=== PATIENT | female | born 1970 | race Caucasian/White ===

== ENCOUNTER 2019-11-04 08:41 | Day surgery (SDC) | payer BC, SELFPAY ==
[2019-11-04] VITALS (7 sets, daily range): BP systolic 133–155; BP diastolic 77–109; PULSE 84–104; RESP 14–22; TEMP 36.3–36.6; O2SAT 97–100
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
[2019-11-04] MEDS: MORPHINE SULFATE 4 MG/ML INJ IV PUSH (08:58)
[2019-11-04] MEDS: TETANUS,DIPHTHERIA,AC PERTUSSIS ADULT (0.5 ML) BOOSTRIX IM (09:07)
[2019-11-04] MEDS: HYDROmorphone HCL INJ (*CRX) 1 MG/ML SYR IV PUSH (10:19)
[2019-11-04] MEDS: MORPHINE SULFATE (*CRX) 4 MG/ML INJ IV PUSH (10:41)
--- NOTE | 2019-11-04 11:48 | WPDANESEPPF ---
Anes - Initial Pre Proc Eval Procedure: Operation Date: 11/04/19 17:00 Proposed Procedures p Open Reduction Internal Fixation Right Distal Radius - J Luis Levine MD Date/Time: 11/04/19 11:48 Pre Op Diagnosis: right wrist fracture Patient Data Age: 49 Gender: F Height: 1.83 m Weight: 117.6 kg Last Vital Signs Temp 36.6 C 11/04/19 08:40 Pulse 95 11/04/19 11:17 Resp 14 11/04/19 11:17 BP 137/88 11/04/19 11:17 Pulse Ox 97 11/04/19 11:17 Allergies Allergy/AdvReac Type Severity Reaction Status Date / Time No Known Allergies Allergy Verified 11/04/19 08:51 Home Medications Medication Instructions Recorded Confirmed Type lisinopril-hydrochlorothiazide 20 tablet PO DAILY 11/04/19 11/04/19 History omeprazole magnesium [Prilosec OTC] 20 mg PO DAILY 11/04/19 11/04/19 History Patient hx anesthesia problems: none Family hx anesthesia problems: none [facility] Past Medical History Medical History (Updated 11/04/19 @ 13:32 by Brice Matt DO) GERD (gastroesophageal reflux disease) Hypertension Social History Social History (Updated 11/04/19 @ 08:55 by Brice Matt DO) Smoking packs per day: 0.5 Smoking cigarettes per day: 10.0 Anes - Eval Final PreProcedure Day of Procedure 11/04/19 11:48 Patient weight: obese Heart: regular rate and rhythm Lungs: clear to auscultation and normal air movement Airway: Mallampati scale class II Neurological: alert and oriented Last oral intake: >/= 8 hours ASA classification: III Emergent: yes Anesthetic plan: proceed Anesthesia type and monitoring: general LMA and standard monitoring Informed Consent: The patient's anesthetic plan and its attendant risks and benefits were discussed with the patient/family/POA. Questions were solicited and answers provided to the satisfaction of the patient/family/POA.
--- NOTE | 2019-11-04 12:48 | PC.NURSE ---
spoke to spouse Jorge A at [phone] and gave update on pt status per pt request
[2019-11-04] MEDS: SODIUM CHLORIDE 0.9% IV 1,000 ML 150 ML IV CONT (12:52)
[2019-11-04 14:38] LABS: Basophils Absolute Auto 0.1 K/mm3 (0.0-0.1); Basophils Percent Auto 0.6 % (0.2-1.2); Eosinophils Absolute Auto 0.2 K/mm3 (0-0.3); Eosinophils Percent Auto 1.6 % (0-4.4); Hematocrit 38.5 % (37.0-47.0); Hemoglobin 12.2 g/dL (12.0-15.0); Immature Granulocyte Absolute 0.04 K/mm3 (0.00-0.031); Immature Granulocyte Percent A 0.4 % (0-0.5); Immature Platelet Fraction Pct 4.9 % (0.9-11.2); Lymphocytes Absolute Auto 2.46 K/mm3 (0.9-3.2); Lymphocytes Percent Auto 22.6 % (18.3-44.2); Mean Corpuscular HGB Conc 31.7 g/dl (32-36); Mean Corpuscular Hemoglobin 27.3 pg (26-34); Mean Corpuscular Volume 86.1 fl (80-100); Mean Platelet Volume 11.4 fl (7.4-10.4); Monocytes Absolute Auto 0.8 K/mm3 (0.1-0.6); Monocytes Percent Auto 7.3 % (2.6-8.5); Neutrophils Absolute Auto 7.4 K/mm3 (1.3-6.7); Neutrophils Percent Auto 67.5 % (45.5-73.1); Platelet Count Result 364 k/mm3 (150-375); Red Blood Count 4.47 M/mm3 (4.2-5.4); Red Cell Distribution Width 14.7 % (11.5-14.5); White Blood Count 10.9 K/mm3 (4.5-10.0)
--- NOTE | 2019-11-04 14:49 | ECG_ITS ---
Measurements Intervals [place] Rate: 76 P: 43 WI: 139 QRS: 40 QRSD: 86 T: 42 QT: 383 QTc: 431 Interpretive Statements SINUS RHYTHM NORMAL ECG Electronically Signed On 11-04-2019 15:16:22 CDT by Jarett Segovia D.O.
[2019-11-04 14:50] LABS: Alanine Aminotransferase 21 U/L (4-35); Alkaline Phosphatase 64 U/L (38-126); Anion Gap 4 mmol/L (8-16); Aspartate Amino Transferase 32 U/L (14-36); Bilirubin,Total 0.4 mg/dL (0.2-1.3); Blood Urea Nitrogen 13 mg/dL (7-17); Calcium 8.9 mg/dL (8.4-10.2); Carbon Dioxide 27 mmol/L (22-30); Chloride 106 mmol/L (98-107); Estimated CRCL calculation 123 ml/min; Estimated Glomerular Filt Rate > 60; Glucose 99 mg/dL (65-105); Potassium 3.6 mmol/L (3.4-5.0); Sodium 137 mmol/L (137-145)
[2019-11-04 14:52] LABS: Platelet Estimate Adequate (Adequate)
[2019-11-04] MEDS: LACTATED RINGERS 1,000 ML 30 ML IV CONT (15:27)
[2019-11-04] MEDS: KETOROLAC 15 MG/ML VIAL (*BKC) IV PUSH (15:35)
[2019-11-04] MEDS: fentaNYL CITRATE INJ (*CRX) 100 MCG/2 ML VIAL 25 MCG IV PUSH ×2 (15:40→15:51)
[2019-11-04] MEDS: oxyCODONE/ACETAMINOPHEN (*CRX) 5-325 MG TABLET 1 TABLET PO (16:59)
--- NOTE | 2019-11-04 17:03 | SUR.PREOP ---
Addendum entered by Luz Bejarano RN 11/04/19 17:04: Dr Levine bedside talking to patient Original Note: case cancelled patient to follow up with Dr Levine's office for referral provider information
--- NOTE | 2019-11-04 17:16 | SUR.PREOP ---
Dr Levine instructed patient to follow up tomorrow with Dr Tracey Huizar and patient was given phone number [phone] and to take x-rays advised next pain pill can be taken anytime
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
== END 2019-11-04 17:30 | disposition home or self-care (01) ==
LOC: ANHED 13:32 → ANHSURGERY 14:33
PROVIDERS: Emergency Provider Emergency Medicine; PCP Internal Medicine; Visit Provider Orthopaedic Surgery
PROC: (CPT 25575; principal; 2019-11-04 17:00)
DX: S59.291A Other physeal fracture of lower end of radius, right arm, initial encounter for closed fracture (principal); Z53.9 Procedure and treatment not carried out, unspecified reason; S01.81XA Laceration without foreign body of other part of head, initial encounter; V49.88XA Car occupant (driver) (passenger) injured in other specified transport accidents, initial encounter; I10 Essential (primary) hypertension; K21.9 Gastro-esophageal reflux disease without esophagitis; F17.210 Nicotine dependence, cigarettes, uncomplicated; Z23 Encounter for immunization
CPT/HCPCS: 12011; 25605; 36415; 71045; 73110; 73200; 80053; 85025; 85055; 90471; 90715; 93005; 96365; 96375; 96376; 99214; 99285; A4565; A9270; G0463; J0131; J1170; J1885; J2270; J3010; J3370; J7030; J7120

== ENCOUNTER 2021-03-12 00:24 | Emergency (ER) | payer BC, SELFPAY ==
[2021-03-12] VITALS (13 sets, daily range): BP systolic 132–148; BP diastolic 90–108; PULSE 78–106; RESP 13–25; TEMP 36.8; O2SAT 99–100
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
--- NOTE | 2021-03-12 00:30 | ECG_ITS ---
Measurements Intervals [place] Rate: 86 P: 9 MD: 145 QRS: 34 QRSD: 89 T: 31 QT: 355 QTc: 425 Interpretive Statements SINUS RHYTHM BASELINE ARTIFACT- I, II, III, AVR, AVL, AVF NORMAL ECG Electronically Signed On 03-12-2021 7:10:40 EMBEDDED NURSE by Jarett Segovia D.O.
--- NOTE | 2021-03-12 00:42 | PC.NURSE ---
Patient tough stick, stuck twice, unsuccessful. 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 Spoke with Angela, she stated she is busy but will come when she is available.
[2021-03-12] MEDS: KETOROLAC 30 MG/ML VIAL (*BKC) IV PUSH (01:23)
[2021-03-12 01:55] LABS: Basophils Absolute Auto 0.1 K/mm3 (0.0-0.1); Basophils Percent Auto 0.5 % (0.2-1.2); Eosinophils Absolute Auto 0.2 K/mm3 (0-0.3); Eosinophils Percent Auto 1.6 % (0-4.4); Hematocrit 42.3 % (37.0-47.0); Hemoglobin 13.6 g/dL (12.0-15.0); Immature Granulocyte Absolute 0.02 K/mm3 (0.00-0.031); Immature Granulocyte Percent A 0.2 % (0-0.5); Lymphocytes Absolute Auto 2.69 K/mm3 (0.9-3.2); Lymphocytes Percent Auto 27.2 % (18.3-44.2); Mean Corpuscular HGB Conc 32.2 g/dl (32-36); Mean Platelet Volume 10.2 fl (7.4-10.4); Monocytes Absolute Auto 0.9 K/mm3 (0.1-0.6); Neutrophils Absolute Auto 6.1 K/mm3 (1.3-6.7); Neutrophils Percent Auto 61.5 % (45.5-73.1); Platelet Count Result 392 k/mm3 (150-375); Red Blood Count 4.86 M/mm3 (4.2-5.4); Red Cell Distribution Width 14.6 % (11.5-14.5); White Blood Count 9.9 K/mm3 (4.5-10.0)
[2021-03-12 02:05] LABS: Partial Thromboplastin Time 27.1 SECONDS (22.3-36.8)
[2021-03-12 02:14] LABS: Alanine Aminotransferase 26 U/L (4-35); Albumin Level 4.5 g/dL (3.5-5.1); Alkaline Phosphatase 84 U/L (38-126); Anion Gap 7 mmol/L (8-16); Aspartate Amino Transferase 31 U/L (14-36); Bilirubin,Total 0.7 mg/dL (0.2-1.3); Blood Urea Nitrogen 9 mg/dL (7-17); Calcium 9.7 mg/dL (8.4-10.2); Carbon Dioxide 28 mmol/L (22-30); Chloride 105 mmol/L (98-107); Estimated CRCL calculation 103 ml/min; Estimated Glomerular Filt Rate > 60; Glucose 105 mg/dL (65-110); Lipase 29 U/L (23-300); Potassium 3.2 mmol/L (3.4-5.0); Sodium 140 mmol/L (137-145)
[2021-03-12 02:26] LABS: Troponin I < 0.012 ng/mL (0.000-0.034)
--- NOTE | 2021-03-12 03:21 | ED.GENADULT ---
HPI - General Adult General Chief complaint: Chest Pain Stated complaint: L sided chest pain Time Seen by Provider: 03/12/21 00:46 History of Present Illness HPI narrative: Patient 50-year-old female presents to emergency department with chief complaint of left-sided chest pain. Patient reports she was recently diagnosed with COVID-19 and reports that she has pain in the left side of her chest. Patient states that the pressure-like sensation but also has a sharp component the patient reports that the pain is worse with inspiration and improved whenever she holds her left chest wall. Related Data Home Medications Medication Instructions Recorded Confirmed lisinopril-hydrochlorothiazide 20 tablet PO DAILY 11/04/19 11/04/19 omeprazole magnesium [Prilosec OTC] 20 mg PO DAILY 11/04/19 11/04/19 escitalopram oxalate 10 mg PO DAILY 03/12/21 Allergies Allergy/AdvReac Type Severity Reaction Status Date / Time No Known Allergies Allergy Verified 03/12/21 00:30 Review of Systems Review of Systems: A 10 system review of systems was completed on the patient and is negative except for what is stated in the HPI. Nursing and ancillary documentation was reviewed. [facility] Past Medical History Medical History GERD (gastroesophageal reflux disease) Hypertension Social History Social History Smoking packs per day: 0.5 Smoking cigarettes per day: 10.0 Gender identity (if verbalized by the patient): Female Exam Narrative: GENERAL: Well-appearing, well-nourished, and in no acute distress. HEAD: Normocephalic, atraumatic. EYES: PERRLA and EOMI. ENT: Nares clear, no rhinorrhea or epistaxis. Mucous membranes moist. NECK: Supple. CHEST: Clear to auscultation. No respiratory distress. Tenderness to palpation of the left chest wall HEART: Regular rate and rhythm. No murmur heard. Normal peripheral pulses. ABDOMEN: Soft, nontender, nondistended, normal active bowel sounds. EXTREMITIES: Normal range of motion. No edema. SKIN: Warm, dry, no rash. NEURO: No focal deficits. Alert and oriented x3. PSYCH: Normal mood and affect. Course Course Emergency Course: EKG sinus rhythm rate of [address] elevation or ST depression Chest x-ray showed no acute abnormalities CTA chest showed pneumonitis/bronchitis of the left upper lobe Vital Signs Vital signs: Vital Signs Temperature 36.8 C 03/12/21 00:21 Pulse Rate 83 03/12/21 00:21 Respiratory Rate 18 03/12/21 00:21 Blood Pressure 148/108 H 03/12/21 00:21 Pulse Oximetry 100 03/12/21 00:21 Temperature 36.8 C 03/12/21 00:21 Pulse Rate 83 03/12/21 00:21 Respiratory Rate 18 03/12/21 00:21 Blood Pressure 148/108 H 03/12/21 00:21 Pulse Oximetry 100 03/12/21 00:21 Medical Decision Making Vital Signs Vital Signs: Vital Signs Temperature 36.8 C 03/12/21 00:21 Pulse Rate 83 03/12/21 00:21 Respiratory Rate 18 03/12/21 00:21 Blood Pressure 148/108 H 03/12/21 00:21 Pulse Oximetry 100 03/12/21 00:21 Temperature 36.8 C 03/12/21 00:21 Pulse Rate 83 03/12/21 00:21 Respiratory Rate 18 03/12/21 00:21 Blood Pressure 148/108 H 03/12/21 00:21 Pulse Oximetry 100 03/12/21 00:21 Lab Data Result diagrams: 03/12/21 01:46 03/12/21 01:46 Labs: Lab Results 03/12/21 03/12/21 03/12/21 Range/Units 01:46 01:46 01:46 WBC 9.9 (4.5-10.0) K/mm3 RBC 4.86 (4.2-5.4) M/mm3 Hgb 13.6 (12.0-15.0) g/dL Hct 42.3 (37.0-47.0) % MCV 87.0 (80-100) fl MCH 28.0 (26-34) pg MCHC 32.2 (32-36) g/dl RDW 14.6 H (11.5-14.5) % Plt Count 392 H (150-375) k/mm3 MPV 10.2 (7.4-10.4) fl Immature Gran % (Auto) 0.2 (0-0.5) % Neut % (Auto) 61.5 (45.5-73.1) % Lymph % (Auto) 27.2 (18.3-44.2) % [place] % (Auto) 9.0 H (2.6-8.5) % Eos % (Auto)
== END 2021-03-12 03:46 | disposition home or self-care (01) ==
PROVIDERS: Emergency Provider Emergency Medicine; PCP Internal Medicine
DX: U07.1 COVID-19 (principal); J12.82 Pneumonia due to coronavirus disease 2019; R07.89 Other chest pain; I10 Essential (primary) hypertension; K21.9 Gastro-esophageal reflux disease without esophagitis; F17.210 Nicotine dependence, cigarettes, uncomplicated; D35.01 Benign neoplasm of right adrenal gland
CPT/HCPCS: 36415; 71045; 71275; 80053; 83690; 84484; 85025; 85610; 85730; 93005; 96374; 99284; J1885; Q9967